=== PATIENT | male | born 1990 | race Two or more races ===

== ENCOUNTER 2020-01-21 20:38 | Emergency (ER) | payer SELFPAY ==
[~2020-01-21] VITALS: Ht 160 cm; Wt 56.7 kg
[2020-01-21 20:52] VITALS: BP 128/82
--- NOTE | 2020-01-21 20:52 | NUR ---
ED Nurse Note: Pt ambulated into ed from home CO abdominal pain 9/10 x 1 week with worsened and increased pain x 2 days cx pts inability to sleep properly x 2 days. Pt states he has n/v and chills but denies body aches. Pt states that pain originates from right side and can be minimally felt on left side of abdomen. Pt aao x 4, VSS. Pt states he has previous health issue with colon but is unsure of the exact condition. NKA. Awaiting ERMD at bedside
--- NOTE | 2020-01-21 21:00 | NUR ---
ED Nurse Note: ERMD at bedside
--- NOTE | 2020-01-21 21:10 | NUR ---
ED Nurse Note: All medications administered, pt tolerated well no ss of distress noted. VSS, no adverse reactions noted.
[2020-01-21] MEDS ORDERED: Dicyclomine HCl 10mg/5ml oral soln ORAL ONE (21:15)
[2020-01-21] MEDS ORDERED: Lidocaine 2% Visc 15ml soln ORAL ONE (21:15)
[2020-01-21] MEDS ORDERED: Mylanta II UD 30ml ORAL ONE (21:15)
--- NOTE | 2020-01-21 21:16 | NUR ---
X-ray notified to page US tech.
--- NOTE | 2020-01-21 21:23 | Emergency Room Report ---
History of Present Illness General Chief Complaint: Abdominal Pain Source: Patient (Austin Ortiz MD) Present Illness HPI Patient is a 30-year-old male who presents after increased right upper abdominal pain. Patient ports having intermittent episodes of pain. Worse after eating. Has been having increased pain over the past few days. Denies any prior history of alcohol abuse. Denies any vomiting. Reports having increased nausea. Denies any diarrhea. Denies any fever. Denies any cough. (Austin Ortiz MD) Allergies: Coded Allergies: No Known Allergies (Unverified , 01/21/20) COVID-19 Screening Contact w/high risk pt: No Recent Travel to affected area: No Experienced COVID-19 symptoms?: No (Austin Ortiz MD) Patient History Past Medical History: see triage record Reviewed Nursing Documentation: PMH: Agreed; PSxH: Agreed (Austin Ortiz MD) Nursing Documentation-PMH Hx Gastrointestinal Problems: Yes - colon issue (Austin Ortiz MD) Review of Systems All Other Systems: negative except mentioned in HPI (Austin Ortiz MD) Physical Exam Vital Signs Date Time Temp Pulse Resp B/P (MAP) Pulse Ox O2 Delivery O2 Flow Rate FiO2 01/21/20 20:42 98.8 90 16 134/86 (102) 96 Room Air Sp02 EP Interpretation: reviewed, normal General Appearance: normal inspection, well appearing, no apparent distress, alert, GCS 15, non-toxic Head: atraumatic ENT: normal ENT inspection, hearing grossly normal, normal voice Neck: normal inspection, full range of motion, supple, no bony tend Respiratory: normal inspection, lungs clear, normal breath sounds, no respiratory distress, no retraction, no wheezing Cardiovascular #1: regular rate, rhythm, no edema Gastrointestinal: normal inspection, normal bowel sounds, non tender, soft, no guarding, no hernia Genitourinary: no CVA tenderness Musculoskeletal: normal inspection, back normal, normal range of motion Neurologic: alert, motor strength/tone normal, 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 Differential diagnoses included ischemic bowel, appendicitis, perforated viscus, abdominal aortic aneurysm, inferior myocardial infarction, viral gastroenteritis among others.Because patient's complexity imaging studies, and laboratory testing ordered. Patient appeared to have some mild discomfort to the right upper abdomen. Laboratory testing was ordered. Abdominal ultrasound was ordered to evaluate for possible cholecystitis. Patient was endorsed to Dr. Miller pending imaging studies and laboratory testing. (Austin Ortiz MD) ER Course Patient signed out to me. He presents with abdominal pain. No evidence of obstruction. Ultrasound is negative. Will discharge home. Pain is well controlled now. (Александр Miller MD) CT/MRI/US Diagnostic Results CT/MRI/US Diagnostic Results : Imaging Test Ordered: Abdominal ultrasound Impression Read by radiologist. Negative. (Александр Miller MD) Last Vital Signs Date Time Temp Pulse Resp B/P (MAP) Pulse Ox O2 Delivery O2 Flow Rate FiO2 01/21/20 20:52 82 16 Room Air 01/21/20 20:52 98.8 128/82 96 Status: improved (Austin Ortiz MD) Disposition: HOME, SELF-CARE Condition: Stable Scripts Famotidine* (Pepcid 20mg tablet*) 20 Mg Tablet 20 MG ORAL DAILY, #30 TAB 0 Refills Prov: Austin Ortiz MD 01/21/20 Dicyclomine Hcl* (DICYCLOMINE HCL*) 10 Mg Capsule 10 MG ORAL QID, #20 CAP Prov: Austin Ortiz MD 01/21/20 Referrals: NOT CHOSEN IPA/,REFERRING (PCP) Patient Instructions: Abdominal Pain, Adult Austin Ortiz MD Jan 21, 2020 21:23 Александр Miller MD Jan 21, 2020 23:07
[2020-01-21] MEDS ORDERED: FAMOTIDINE20 MG ORAL (21:57)
[2020-01-21] MEDS ORDERED: DICYCLOMINE HCL10 MG ORAL (21:57)
[2020-01-21 21:59] LABS: APPEARANCE,URINE CLEAR; BASOPHILS % (AUTO) 1.3 % (0.0-2.0); COLOR,URINE PALE YELLOW; EOSINOPHILS % (AUTO) 1.2 % (0.0-3.0); HEMATOCRIT 42.3 % (42.0-52.0); LYMPHOCYTES % (AUTO) 35.4 % (20.0-45.0); MEAN CORPUSCULAR VOLUME 91 FL (80-99); MONOCYTES % (AUTO) 6.7 % (1.0-10.0); NEUTROPHILS % (AUTO) 55.4 % (45.0-75.0); PLATELET COUNT 180 K/UL (150-450); RED BLOOD COUNT 4.62 M/UL (4.70-6.10); RED CELL DISTRIBUTION WIDTH 12.4 % (11.6-14.8); WHITE BLOOD COUNT 6.4 K/UL (4.8-10.8)
[2020-01-21 22:00] LABS: BILIRUBIN, URINE NEGATIVE (NEGATIVE); GLUCOSE, URINE (UA) NEGATIVE (NEGATIVE); KETONES,URINE NEGATIVE (NEGATIVE); LEUKOCYTE ESTERASE ,URINE NEGATIVE (NEGATIVE); NITRITE,URINE NEGATIVE (NEGATIVE); PROTEIN,URINE NEGATIVE (NEGATIVE); UROBILINOGEN,URINE NORMAL MG/DL (0.0-1.0)
[2020-01-21 22:11] LABS: ANION GAP 11 mmol/L (5-15); BLOOD UREA NITROGEN 12 mg/dL (7-18); CALCIUM 8.8 MG/DL (8.5-10.1); CARBON DIOXIDE 27 MMOL/L (21-32); CHLORIDE 105 MMOL/L (98-107); CREATININE 0.9 MG/DL (0.55-1.30); POTASSIUM 3.4 MMOL/L (3.5-5.1); SODIUM 143 MMOL/L (136-145)
[2020-01-21 22:18] LABS: ALANINE AMINOTRANSFERASE 43 U/L (12-78); ALBUMIN 4.3 G/DL (3.4-5.0); ALBUMIN/GLOBULIN RATIO 1.2 (1.0-2.7); ALKALINE PHOSPHATASE 61 U/L (46-116); ASPARTATE AMINO TRANSFERASE 19 U/L (15-37); BILIRUBIN,TOTAL 0.5 MG/DL (0.2-1.0)
--- NOTE | 2020-01-21 22:25 | NUR ---
ED Nurse Note: US at bedside
[2020-01-21 22:42] VITALS: BP 117/73
--- NOTE | 2020-01-21 22:50 | NUR ---
ED Nurse Note: ERMD at bedside
--- NOTE | 2020-01-21 23:02 | Diagnostic Imaging Report ---
EXAM: US Abdomen Complete CLINICAL HISTORY: ABD PAIN TECHNIQUE: Real-time ultrasound of the abdomen with image documentation. COMPARISON: No relevant prior studies available. FINDINGS: Liver: Liver 15cm No intrahepatic bile duct dilation. Gallbladder: Unremarkable. No gallstones. Common bile duct: CBD 0.5cm No stones. No dilation. Pancreas: Unremarkable as visualized. Kidneys: Left kidney 10.1cm Right kidney 10.4cm No stones. No hydronephrosis. Spleen: Spleen 7.7cm Aorta: Aorta 1.7cm No aneurysm. Inferior vena cava: Unremarkable. Other findings: No acute abnormality to account for patient presentation. Unremarkable study. GB wall 0.2cm IMPRESSION: 1. No acute abnormality to account for patient presentation. 2. Unremarkable study.
[2020-01-21 23:15] VITALS: BP 117/76
--- NOTE | 2020-01-21 23:15 | NUR ---
ER DISCHARGE NOTE: Patient is cleared to be discharged home per ERMD, pt is aox4, 99% on room air, with stable vital signs. pt was given dc and prescription instructions, pt was able to verbalize understanding, pt id band and iv site removed without complications. pt is able to ambulate with steady gait. pt took all belongings.
== END 2020-01-21 23:15 | disposition home or self-care (01) ==
LOC: EMR 21:07
DX: R10.13 Epigastric pain (principal)
CPT/HCPCS: 36415; 76700; 80053; 81003; 83690; 85025; 96374; 96375; 99284; J2405; J7040; S0028